=== PATIENT | female | born 1945 | race Caucasian/White ===

== ENCOUNTER 2016-11-13 22:42 | Emergency (ER) | payer MEDICARE, OTHER ==
[~2016-11-13] VITALS: Ht 157.5 cm; Wt 83.2 kg
[2016-11-13 22:49] VITALS: BP 246/114; PULSE 84; RESP 18; TEMP 98.5; O2SAT 94
[2016-11-13] MEDS ORDERED: RANI150T PO (23:13)
[2016-11-13] MEDS ORDERED: HYDR-755 PO (23:13)
[2016-11-13] MEDS ORDERED: DULO1CAP3 PO (23:13)
[2016-11-13] MEDS ORDERED: AMLO10TA2 PO (23:13)
[2016-11-13] MEDS ORDERED: TURM500C4 (23:13)
[2016-11-13] MEDS ORDERED: METO-426 PO (23:13)
[2016-11-13] MEDS ORDERED: PRAM1TAB PO (23:13)
[2016-11-13] MEDS ORDERED: LEFL1TAB3 PO (23:13)
[2016-11-13] MEDS ORDERED: LOSA100T PO (23:13)
[2016-11-13] MEDS ORDERED: BUTA1CAP PO (23:13)
[2016-11-13] MEDS ORDERED: ZOLP5TAB3 PO (23:13)
[2016-11-13] MEDS ORDERED: PANT40TA3 PO (23:13)
[2016-11-13] MEDS ORDERED: CHOL1TAB42 (23:13)
[2016-11-13] MEDS ORDERED: FURO1TAB62 PO (23:13)
[2016-11-13] MEDS ORDERED: POTA10CA PO (23:13)
[2016-11-13] MEDS ORDERED: VITA200C3 PO (23:13)
[2016-11-13] MEDS ORDERED: OXYC1TAB36 PO (23:13)
[2016-11-13] MEDS ORDERED: WARF-23 PO (23:13)
[2016-11-13] MEDS ORDERED: TRAZ1TAB45 PO (23:13)
[2016-11-13] MEDS ORDERED: MAGN100T2 PO (23:13)
[2016-11-13 23:18] VITALS: BP 187/87; PULSE 77; RESP 16; O2SAT 97
--- NOTE | 2016-11-14 00:09 | PD ---
HPI Chief Complaint: Back/ Neck Pain or Injury Time Seen by Provider: 00:05 Travel History International Travel<30 days: No Contact w/Intl Traveler<30days: No Traveled to known affect area: No History of Present Illness HPI 71-year-old female presents to the emergency department the care of family for complaint of severe low back pain which has progressively worsened over the past 2 weeks after a non-syncopal slip and fall. Patient states she now has referred pain down both lower extremities and intermittently has numbness. Patient was seen by her primary care provider and told that she had sciatica. No bladder or bowel incontinence. Patient does not report some anesthesia. Patient also has history of rheumatoid arthritis. Patient also has history of previous PE and takes Coumadin. Patient did not hit her head did not have loss of consciousness. Patient rates her current pain 2/10 intensity upon standing and weightbearing reportedly 10 over 10 in intensity. Patient takes Percocet daily and states provides no relief. PFSH Past Medical History Narrative Medical Anxiety pulmonary embolism diabetes hypertension dyslipidemia spinal stenosis rheumatoid arthritis; no tobacco use; nursing notes reviewed Hx Anticoagulant Therapy: Yes Anxiety: Yes Cardiovascular Problems: Yes (PE) High Cholesterol: Yes Diabetes: Yes Patient Takes Glucophage: No GERD: Yes Hypertension: Yes Insomnia: Yes Medical other: Yes (aps syndrome) Parkinson's Disease: Yes Tetanus Vaccination: Unknown ?: Not Social History Alcohol Use: No Tobacco Use: No Substance Use: No Allergies-Medications (Allergen,Severity, Reaction): Coded Allergies: NSAIDS (Non-Steroidal Anti-Inflamma (Verified Allergy, Severe, Bleeding, ) promethazine (Verified Allergy, Severe, Confusion, 11/13/16) adhesive (Verified Allergy, Intermediate, Rash, 11/13/16) morphine (Verified Allergy, Intermediate, Hives, 11/13/16) Reported Meds & Prescriptions Reported Meds & Active Scripts Active Reported Warfarin 5 Mg Tab 5 Mg PO DAILY Vitamin E 200 Unit Cap 200 Units PO DAILY Vitamin D-3 (Cholecalciferol) 2,000 Unit Tab Fioricet (Grmhctkukm-Sstinbcwzrytq-Vhxwsvfe) 50-300-40 Mg Cap 1 Cap PO Q4H PRN Oxycodone-Acetaminophen 10-325 mg Tab 1 Tab PO Q4H PRN Hydroxyzine HCl 10 Mg Tab 10 Mg PO TID PRN Potassium Chloride ER (Potassium Chloride) 10 Meq Cap 10 Meq PO DAILY Lasix (Furosemide) 20 Mg Tab 20 Mg PO DAILY Magnesium Citrate 100 Mg Tab 100 Mg PO DAILY PRN Turmeric (Turmeric Root Extract) 500 Mg Capsule Pramipexole (Pramipexole Dihydrochloride) 1 Mg Tab 1 Mg PO HS Zolpidem (Zolpidem Tartrate) 5 Mg Tab 5 Mg PO HS PRN Trazodone (Trazodone HCl) 150 Mg Tablet 150 Mg PO HS Duloxetine DR (Duloxetine HCl) 60 Mg Capdr 60 Mg PO DAILY Leflunomide 20 Mg Tab 20 Mg PO DAILY Pantoprazole (Pantoprazole Sodium) 40 Mg Tab 40 Mg PO DAILY Ranitidine (Ranitidine HCl) 150 Mg Tab 150 Mg PO BID Losartan (Losartan Potassium) 100 Mg Tab 100 Mg PO DAILY Amlodipine (Amlodipine Besylate) 10 Mg Tab 10 Mg PO DAILY Metoprolol Tartrate 75 Mg Tab 75 Mg PO BID Review of Systems Except as stated in HPI: all other systems reviewed are Neg Physical Exam Narrative GENERAL: Well-developed well-nourished female in no acute distress no respiratory distress SKIN: Warm and dry. HEAD: Normocephalic. EYES: No scleral icterus. No injection or drainage. NECK: Supple, trachea midline. No JVD or lymphadenopathy. CARDIOVASCULAR: Regular rate and rhythm without murmurs, gallops, or rubs. RESPIRATORY: Breath sounds equal bilaterally. No accessory muscle use. GASTROINTESTINAL: Abdomen soft, non-tender, nondistended. MUSCULOSKELETAL: No cyanosis, or edema. BACK: Nontender without obvious deformity. Negative straight leg raising bilaterally. Sensory exam grossly intact as tested. No clonus. No CVA tenderness. Data Data Last Documented VS Vital Signs Date Time Temp Pulse Resp B/P (MAP) Pulse Ox O2 Delivery O2 Flow Rate FiO2 11/14/16 02:00 78 18 154/87 (109) 97 Room Air 11/13/16 22:49 98.5 Orders Orders Spine, Lumbar - Ltd (Ap & Lat) (11/14/16 ) Pelvis, Ap Only (Routine) (11/14/16 ) ^ Saline Lock (11/14/16 00:05) Prothrombin Time / Inr (Pt) (11/14/16 00:05) Complete Blood Count With Diff (11/14/16 00:05) Basic Metabolic Panel (Bmp) (11/14/16 00:05) Urinalysis - C+S If Indicated (11/14/16 00:05) Ondansetron Inj (Zofran Inj) (11/14/16 01:00) Hydromorphone Pf Inj (Dilaudid Pf Inj) (11/14/16 01:00) Hydromorphone Pf Inj (Dilaudid Pf Inj) (11/14/16 01:30) Dexamethasone Inj (Decadron Inj) (11/14/16 01:30) Labs Laboratory Tests Test 11/14/16 00:15 11/14/16 00:40 Urine Color YELLOW Urine Turbidity SLIGHT Urine pH 8.5 Urine Specific Pierce 1.013 Urine Protein NEG mg/dL Urine Glucose (UA) NEG mg/dL Urine Ketones NEG mg/dL Urine Occult Blood TRACE Urine Nitrite NEG Urine Bilirubin NEG Urine Leukocyte Esterase TRACE Urine RBC 0-2 /hpf Urine WBC 3-5 /hpf Urine Squamous Epithelial Cells 0-5 /hpf Urine Amorphous Sediment MOD Urine Bacteria NONE /hpf Microscopic Urinalysis Comment CULT NOT INDICATED White Blood Count 9.6 TH/MM3 Red Blood Count 4.34 MIL/MM3 Hemoglobin 12.1 GM/DL Hematocrit 36.7 % Mean Corpuscular Volume 84.5 FL Mean Corpuscular Hemoglobin 28.0 PG Mean Corpuscular Hemoglobin Concent 33.1 % Red Cell Distribution Width 14.2 % Platelet Count 240 TH/MM3 Mean Platelet Volume 8.3 FL Neutrophils (%) (Auto) 68.7 % Lymphocytes (%) (Auto) 18.2 % Monocytes (%) (Auto) 8.7 % Eosinophils (%) (Auto) 3.8 % Basophils (%) (Auto) 0.6 % Neutrophils # (Auto) 6.5 TH/MM3 Lymphocytes # (Auto) 1.8 TH/MM3 Monocytes # (Auto) 0.8 TH/MM3 Eosinophils # (Auto) 0.4 TH/MM3 Basophils # (Auto) 0.1 TH/MM3 CBC Comment DIFF FINAL Differential Comment Prothrombin Time 18.7 SEC Prothromb Time International Ratio 1.7 RATIO Blood Urea Nitrogen 16 MG/DL Creatinine 0.84 MG/DL Random Glucose 94 MG/DL Calcium Level 8.9 MG/DL Sodium Level 140 MEQ/L Potassium Level 3.5 MEQ/L Chloride Level 103 MEQ/L Carbon Dioxide Level 32.5 MEQ/L Anion Gap 5 MEQ/L Estimat Glomerular Filtration Rate 67 ML/MIN MDM Medical Decision Making Medical Screen Exam Complete: Yes Emergency Medical Condition: Yes Medical Record Reviewed: Yes Interpretation(s) Last Impressions Pelvis X-Ray 11/14/16 0000 Signed Impressions: Service Date/Time: Monday, November 14, 2016 00:22 - CONCLUSION: 1. No acute fracture or dislocation. 2. 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 Maciej Kunz MD Lumbar Spine X-Ray 11/14/16 0000 Signed Impressions: Service Date/Time: Monday, November 14, 2016 00:23 - CONCLUSION: 1. No acute fracture or subluxation. 2. Multilevel degenerative spondylosis of the lumbar spine. Maciej uKnz MD CBC & BMP Diagram 11/14/16 00:40 Calcium Level 8.9 Vital Signs Date Time Temp Pulse Resp B/P (MAP) Pulse Ox O2 Delivery O2 Flow Rate FiO2 11/14/16 02:00 78 18 154/87 (109) 97 Room Air 11/14/16 01:12 82 16 178/73 (108) 97 Room Air 11/13/16 23:18 77 16 187/87 (120) 97 Room Air 11/13/16 22:49 98.5 84 18 246/114 (158) 94 Differential Diagnosis HNP sciatica exacerbation low back pain compression fracture uncontrolled hypertension; also to consider aortic dissection cauda equina Narrative Course IV access obtained specimens collected and sent for resulting imaging studies ordered Pain is very localized to the lower back and bilateral buttock region denies any abdominal pain chest pain midscapular pain thoracic spine are upper lumbar pain denies any ripping tearing pain denies any increasing pain. Blood pressure has improved patient administered one time dose of Zofran 4 mg IV and Dilaudid 0.5 mg IV Patient states that her pain has improved continues to be sharp upon standing @ 2:22 AM patient reports much improved desirous of being discharged to home; BP : 154/87 Diagnosis Primary Impression: Acute exacerbation of chronic low back pain Additional Impressions: Sciatica HTN (hypertension) Referrals: Primary Care Physician call for appointment Head Charger call for appointment Patient Instructions: Narcotic given in the ED, General Instructions Additional Instructions: Take blood pressure medication as prescribed Monitor blood pressure closely wall taking steroid taper Continue chronic pain medication as chronically prescribed Apply moist heat Return to the emergency department for any concerns or change in condition Med/Other Pt SpecificInfo: Prescription(s) given Scripts Methylprednisolone Dosepak (Medrol Dosepak) 4 Mg Dspk 4 MG PO DIRECTED, #1 DSPK 0 Refills Per Pharmacist direction Prov: Lucia Wilkerson MD 11/14/16 Lucia Wilkerson MD Nov 14, 2016 00:09
--- NOTE | 2016-11-14 00:47 | RADRPT ---
EXAM DATE/TIME: 11/14/2016 00:22 [facility] COMPARISON: No previous studies available for comparison. INDICATIONS : Pain in pelvis due to fall. MEDICAL HISTORY : None. SURGICAL HISTORY : None. ENCOUNTER: Initial ACUITY: 1 day PAIN SCORE: 10/10 LOCATION: pelvis FINDINGS: A single frontal view of the pelvis demonstrates no evidence of fracture. The bony pelvic ring is in tact. Prominent degenerative osteoarthritis about the right hip with mild degenerative change about the left hip. Bony mineralization is normal. The soft tissues are intact. CONCLUSION: 1. No acute fracture or dislocation. 2. 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 Maciej Kunz MD on November 14, 2016 at 0:45 Board Certified Radiologist. This report was verified electronically.
--- NOTE | 2016-11-14 00:50 | RADRPT ---
EXAM DATE/TIME: 11/14/2016 00:23 [facility] COMPARISON: No previous studies available for comparison. INDICATIONS : Pain in lumbar area due to fall. MEDICAL HISTORY : None. SURGICAL HISTORY : None. ENCOUNTER: Initial ACUITY: 1 day PAIN SCORE: 10/10 LOCATION: distal lumbar FINDINGS: Two view examination was performed. There are five non-rib bearing vertebral bodies. There is mild a pproximately 3-4 mm grade 1 retrolisthesis of L5 on S1. Sagittal alignment is otherwise maintained. T he pedicles are intact. Bony mineralization is normal. No fracture is identified. There is multilev el degenerative spondylosis with disc space narrowing and primarily anterior osteophyte formation thr oughout the lumbar spine. Variable facet arthropathy most prominent in the lower lumbar spine. Bony n eural foraminal stenosis at L4-5 and L5-S1. CONCLUSION: 1. No acute fracture or subluxation. 2. Multilevel degenerative spondylosis of the lumbar spine. Maciej Kunz MD on November 14, 2016 at 0:46 Board Certified Radiologist. This report was verified electronically.
[2016-11-14 00:53] LABS: AUTOMATED NEUTROPHIL # 6.5 TH/MM3 (1.8-7.7); BASOPHIL # 0.1 TH/MM3 (0-0.2); BASOPHIL % 0.6 % (0.0-2.0); EOSINOPHIL # 0.4 TH/MM3 (0-0.4); EOSINOPHIL % 3.8 % (0.0-4.0); HEMATOCRIT 36.7 % (35.0-46.0); HEMO FLAGS DIFF FINAL; LYMPH % 18.2 % (9.0-44.0); LYMPHOCYTE # 1.8 TH/MM3 (1.0-4.8); MEAN CELL VOLUME 84.5 FL (80.0-100.0); MEAN CORPUSCULAR HGB CONC 33.1 % (32.0-36.0); MONO % 8.7 % (0.0-8.0); NEUT % 68.7 % (16.0-70.0); PLATELET COUNT 240 TH/MM3 (150-450); RED BLOOD COUNT 4.34 MIL/MM3 (4.00-5.30); RED CELL DISTRIBUTION WIDTH 14.2 % (11.6-17.2); WHITE BLOOD COUNT 9.6 TH/MM3 (4.0-11.0)
[2016-11-14 00:54] LABS: GLUCOSE,URINE NEG (NEG); KETONE, URINE NEG (NEG); NITRITE,URINE NEG (NEG); PH, URINE 8.5 (5.0-8.5)
[2016-11-14 00:57] LABS: BLOOD, URINE TRACE (NEG)
[2016-11-14] MEDS ORDERED: ONDANSETRON HCL 4 MG/2 ML VIAL IV PUSH ONE (01:00)
[2016-11-14] MEDS ORDERED: HYDROmorphone HCL PF 1 MG/ML VIAL IV PUSH ONE ×2 (01:00→01:30)
[2016-11-14 01:05] LABS: INTERNATIONAL NORMALIZED RATIO 1.7 RATIO; PROTHROMBIN TIME - PATIENT 18.7 SEC (9.8-11.6)
[2016-11-14 01:07] LABS: RBC, URINE 0-2 /hpf (0-3); SQUAMOUS EPITHELIAL CELL URINE 0-5 /hpf (0-5); URINE COLOR YELLOW (YELLW/STRAW)
[2016-11-14 01:07] LABS: BICARBONATE 32.5 MEQ/L (21.0-32.0); POTASSIUM 3.5 MEQ/L (3.5-5.1)
[2016-11-14 01:08] LABS: COMMENT (UR) CULT NOT INDICATED; CULTURE IF INDICATED CULT NOT INDICATED
[2016-11-14 01:12] VITALS: BP_SYST 178; BP_DIAS 7; BP_DIAS 73; PULSE 82; RESP 16; O2SAT 97
[2016-11-14] MEDS ORDERED: DEXAMETHASONE SOD PHOS 4 MG/ML VIAL IV PUSH ONE (01:30)
[2016-11-14 02:00] VITALS: BP 154/87; PULSE 78; RESP 18; O2SAT 97
[2016-11-14] MEDS ORDERED: MEDR4PAK PO (02:25)
== END 2016-11-14 02:38 | disposition home or self-care (01) ==
LOC: PHED 22:42
DX: M54.5 Low back pain (principal); G89.29 Other chronic pain; I10 Essential (primary) hypertension; M54.30 Sciatica, unspecified side; Z86.711 Personal history of pulmonary embolism; Z79.01 Long term (current) use of anticoagulants
CPT/HCPCS: 72100; 72170; 80048; 81001; 85025; 85610; 96374; 96375; 96376; 99284; J1100; J1170; J2405